=== PATIENT | female | born 1995 | race Two or more races ===

== ENCOUNTER 2022-01-17 14:23 | Observation (INO) | payer SELFPAY ==
[~2022-01-17] VITALS: Ht 162.6 cm; Wt 125.0 kg
[2022-01-17 16:16] LABS: BASO # 0.1 10^3/uL (0.0-0.2); BASO % 0.3 % (0.0-1.0); EOS # 0.2 10^3/uL (0.0-0.5); EOS % 0.8 % (0.0-3.0); HEMATOCRIT 39.4 % (36.0-47.0); HEMOGLOBIN 12.5 g/dl (12.0-15.5); LYMPH # 2.5 10^3/uL (1.5-5.0); LYMPH % 13.4 % (24.0-44.0); MEAN CORPUSCULAR HEMOGLOBIN 28.3 pg (27.0-33.0); MEAN CORPUSCULAR HGB CONC 31.7 g/dl (32.0-36.5); MEAN CORPUSCULAR VOLUME 89.1 fl (80.0-96.0); MONO # 1.3 10^3/uL (0.0-0.8); NEUTROPHILS # 14.7 10^3/uL (1.5-8.5); PLATELET COUNT, AUTOMATED 442 10^3/uL (150-450); RED BLOOD COUNT 4.42 10^6/uL (4.00-5.40); WHITE BLOOD COUNT 18.8 10^3/uL (4.0-10.0)
[2022-01-17 16:53] LABS: LIPASE 35 U/L (12-53)
[2022-01-17 16:55] LABS: ALBUMIN 3.7 G/DL (3.2-5.2); ALKALINE PHOSPHATASE 75 U/L (46-116); ALT/SGPT 20 U/L (7.0-40); AST/SGOT 16 U/L (<34); BILIRUBIN,DIRECT 0.2 MG/DL (<0.4); BILIRUBIN,TOTAL 0.5 MG/DL (0.3-1.2); BLOOD UREA NITROGEN 9 MG/DL (9-23); CARBON DIOXIDE LEVEL 27 MMOL/L (20-31); CHLORIDE LEVEL 104 MMOL/L (98-107); CREATININE FOR GFR 0.69 MG/DL (0.55-1.30); GLOMERULAR FILTRATION RATE > 60.0 (>60); GLUCOSE, FASTING 100 MG/DL (60-100); POTASSIUM SERUM 3.8 MMOL/L (3.5-5.1); SODIUM LEVEL 140 MMOL/L (136-145); TOTAL PROTEIN 7.3 G/DL (5.7-8.2)
[2022-01-17 17:35] LABS: HCG, SERUM QUALITATIVE NEGATIVE (NEGATIVE)
[2022-01-17] MEDS ORDERED: KETOROLAC 30 MG/ML 1ML VIAL IV ONE (20:05)
[2022-01-17] MEDS ORDERED: NS 1,000 ML IV SCH (21:55)
[2022-01-17] MEDS ORDERED: HOME MED LIST COMPLETE! XX SCH (22:10)
[2022-01-17 22:41] LABS: RSV AMPLIFICATION NEGATIVE (NEGATIVE)
[2022-01-17] MEDS ORDERED: PROMETHAZINE 25 MG TAB PO PRN (23:00)
[2022-01-17] MEDS ORDERED: ACETAMINOPHEN TAB 650MG DOSE (2X325MG) PO PRN (23:00)
[2022-01-18] MEDS: NS 1,000 ML IV SCH ×2 (00:29→06:13)
[2022-01-18 02:07] VITALS: BP 124/57
[2022-01-18] MEDS ORDERED: KETOROLAC TROMETHAMINE 10 MG TAB PO PRN (02:30)
[2022-01-18 06:03] VITALS: BP 133/78
[2022-01-18 06:55] LABS: BILIRUBIN,DIRECT 0.2 MG/DL (<0.4)
[2022-01-18 07:07] LABS: ALBUMIN 3.1 G/DL (3.2-5.2); BILIRUBIN,TOTAL 0.5 MG/DL (0.3-1.2); TOTAL PROTEIN 6.4 G/DL (5.7-8.2)
[2022-01-18 07:28] LABS: BASO % 0.3 % (0.0-1.0); EOS # 0.3 10^3/uL (0.0-0.5); EOS % 2.2 % (0.0-3.0); HEMATOCRIT 35.5 % (36.0-47.0); HEMOGLOBIN 11.3 g/dl (12.0-15.5); LYMPH # 2.5 10^3/uL (1.5-5.0); LYMPH % 19.1 % (24.0-44.0); MEAN CORPUSCULAR HEMOGLOBIN 28.5 pg (27.0-33.0); MEAN CORPUSCULAR HGB CONC 31.8 g/dl (32.0-36.5); MEAN CORPUSCULAR VOLUME 89.4 fl (80.0-96.0); MONO # 1.1 10^3/uL (0.0-0.8); MONO % 8.3 % (2.0-8.0); NEUTROPHILS # 9.1 10^3/uL (1.5-8.5); NEUTROPHILS % 69.6 % (36.0-66.0); PLATELET COUNT, AUTOMATED 385 10^3/uL (150-450); RED BLOOD COUNT 3.97 10^6/uL (4.00-5.40)
[2022-01-18] MEDS ORDERED: KETO10TAB PO (08:33)
[2022-01-18] MEDS ORDERED: OMEP1CAP71 PO (08:33)
[2022-01-18] MEDS ORDERED: ENOXAPARIN 40MG/0.4ML SYRINGE (J1650 PER 10MG) SC SCH (09:00)
== END 2022-01-18 14:45 | disposition home or self-care (01) ==
LOC: M ED 14:23 → M ED INP 14:24 → ENRESERV 01-18 01:30 → M MSPAV 01-18 02:07
PROVIDERS: ADMIT Internal Medicine; ATTEND Internal Medicine
DX: K80.51 Calculus of bile duct without cholangitis or cholecystitis with obstruction (principal); E66.01 Morbid (severe) obesity due to excess calories; F12.10 Cannabis abuse, uncomplicated; Z79.899 Other long term (current) drug therapy; F17.200 Nicotine dependence, unspecified, uncomplicated
CPT/HCPCS: 36415; 76705; 80048; 80076; 81002; 83690; 84703; 85025; 87631; 96361; 96374; 99284; J1885